=== PATIENT | female | born 1995 | race Two or more races ===

== ENCOUNTER → 2025-04-04 | Outpatient (CLI) | payer OTHER, SELFPAY ==
--- NOTE | 2025-04-04 11:22 | XR_ITS ---
Examination: OB Transvaginal ultrasound of the pelvis, complete Technique: Transvaginal sonographic images pelvis performed using gonzalez scale imaging Exam date and time: April 04, 2025 1141 hours INDICATIONS: Vaginal bleeding today FINDINGS: Uterus 7.7 cm pole 0.2 cm corresponds to 5 week 6 day gestational age Cardiac motion 117 bpm Right ovary 2.9 cm arterial flow 16mm follicular cyst Left ovary 2.5 cm arterial flow small follicles IMPRESSION: Viable intrauterine gestation 5 weeks 6 days
== END | disposition home or self-care (01) ==
PROVIDERS: PCP Specialist; Referring Provider Specialist; Visit Provider Specialist
DX: Z33.1 Pregnant state, incidental (principal)
CPT/HCPCS: 76817

== ENCOUNTER → 2025-04-05 | Outpatient (CLI) | payer OTHER, SELFPAY ==
[2025-04-05 15:32] LABS: Collection Type, Urine Clean Catch
[2025-04-05 16:46] LABS: Amorphous Crystals,Urine Present (Absent); Bacteria,Urine Rare; Bilirubin,Urine Negative (Negative); Blood,Urine Negative (Negative); Clarity,Urine Clear (Clear/Hazy); Color,Urine Yellow (Lt Yel-Yel); Glucose, Urine Negative (Negative); Ketones,Urine Negative (Negative); Leukocyte Esterase,Urine Negative (Negative); Nitrite,Urine Negative (Negative); Protein,Urine Negative (Neg - Trace); RBC,Urine < 1 /hpf (0-3); Specific Gravity,Urine 1.012 (1.001-1.035); Squamous Epithelial Cell,Urine 1 /hpf (0-5); Urobilinogen,Urine Negative mg/dL (0.0-1.0); WBC,Urine 1 /hpf (0-5)
== END | disposition home or self-care (01) ==
LOC: SLDO 14:18
PROVIDERS: PCP Specialist; Referring Provider Specialist; Visit Provider Specialist
DX: R30.0 Dysuria (principal)
CPT/HCPCS: 81001; 87086

== ENCOUNTER 2025-10-06 10:00 | Outpatient (CLI) | payer OTHER, SELFPAY ==
[2025-10-06] VITALS (10 sets, daily range): BP systolic 119; BP diastolic 70; PULSE 74–83; RESP 17–97; TEMP 36.9; O2SAT 97–98; BMI 29.3
--- NOTE | 2025-10-06 10:00 | XR_ITS ---
Examination: Complete OB ultrasound greater than 14 weeks Date and time of exam: October 06, 2025, 1102 hours INDICATIONS: Nonreactive NST today Findings: Viable intrauterine single fetus with single amniotic sac presentation cephalic Cardiac motion 138 bpm Placenta posterior grade 2 Umbilical cord insertion seen. Amniotic fluid index 11.2 cm Cervix 3.1 cm Ovaries obscured by bowel gas. Composite estimated gestational age based on BPD, head circumference, abdominal circumference, femur length is 32 weeks 2 days Estimated weight 1913.8 g. Survey of intracranial anatomy, spinal anatomy, abdominal anatomy, four-chamber heart performed with no abnormalities identified. Impression: Viable intrauterine gestation cephalic presentation.
--- NOTE | 2025-10-06 10:00 | XR_ITS ---
Examination: Biophysical profile, ultrasound Date and time of exam: October 06, 2025, 1119 hours INDICATIONS: Nonreactive NST today Technique: Multiple transabdominal sonographic images of the pelvis abdomen obtained. Attention is directed to the breathing movement, gross body movement, amniotic fluid volume and tone. Findings: Amniotic fluid index 12 cm Total biophysical profile is 8 of 8. breathing movement is 2. Gross body movement is 2. tone is 2. Qualitative amniotic fluid volume is 2 Impression: Biophysical profile is 8 of 8.
== END 2025-10-06 12:00 | disposition home or self-care (01) ==
LOC: S4S1 10:01 → S4SX 10:01
PROVIDERS: Referring Provider Obstetrics & Gynecology; Visit Provider Obstetrics & Gynecology
DX: Z34.03 Encounter for supervision of normal first pregnancy, third trimester (principal); Z36.9 Encounter for antenatal screening, unspecified; Z3A.32 32 weeks gestation of pregnancy
CPT/HCPCS: 59025; 76805; 76819